=== PATIENT | male | born 1970 | race Caucasian/White ===

== ENCOUNTER 2020-10-17 01:48 | Day surgery (SDC) | payer BC, SELFPAY ==
[2020-10-01 13:32] VITALS: BMI 30.2
[2020-10-17 07:38] VITALS: BP 140/94; PULSE 67; RESP 16; TEMP 35.9; O2SAT 98
[2020-10-17] MEDS: LACTATED RINGERS 1,000 ML 150 ML IV CONT (07:47)
--- NOTE | 2020-10-17 08:07 | P.PNAN_ITS ---
Anes - Initial Pre Proc Eval Procedure: Operation Date: 10/17/20 08:30 Proposed Procedures p Screening Colonoscopy - John Farrar MD Date/Time: 10/17/20 08:07 Surgeon: John Farrar MD Pre Op Diagnosis: neoplasm screening Patient Data Age: 50 Gender: M Height: 1.75 m Weight: 94.9 kg Last Vital Signs Temp 96.7 F L 10/17/20 07:38 Pulse 67 10/17/20 07:38 Resp 16 10/17/20 07:38 BP 140/94 H 10/17/20 07:38 Pulse Ox 98 10/17/20 07:38 Allergies Allergy/AdvReac Type Severity Reaction Status Date / Time No Known Allergies Allergy Verified 10/17/20 07:37 Home Medications Medication Instructions Recorded Confirmed Type No Home Medications 06/23/20 10/17/20 History Patient hx anesthesia problems: none Family hx anesthesia problems: none PMFSH Past Medical History Medical History (Updated 10/17/20 @ 08:03 by Stalin Moe MD) Dyslipidemia Family History Family History Grandparent Family history of cardiovascular disease Acute myocardial infarction, Onset Age: 55 Malignant neoplasm of prostate Father Malignant neoplasm of prostate Social History Social History (Updated 06/23/20 @ 15:34 by Priscilla Culp CMA) Smoking status: Never smoker Alcohol intake: current Drinks per week: 6 Alcohol use details: BEER OR RUM Living arrangements: with family Gender identity (if verbalized by the patient): Male Spiritual care concerns: No Anes - Eval Final PreProcedure Day of Procedure 10/17/20 08:07 Patient weight: obese Heart: regular rate and rhythm Lungs: clear to auscultation Airway: Mallampati scale class II Neurological: alert and oriented Last oral intake: >/= 8 hours ASA classification: II Emergent: no Anesthetic plan: proceed Anesthesia type and monitoring: general GIVS and standard monitoring Informed Consent: The patient's anesthetic plan and its attendant risks and benefits were discussed with the patient/family/POA. Questions were solicited and answers provided to the satisfaction of the patient/family/POA.
--- NOTE | 2020-10-17 08:18 | PM.HPGS ---
History of Present Illness History of Present Illness Consent: Risks, benefits, and alternatives have been discussed and questions answered. Patient agrees to proceed with procedure. Chief complaint: neoplasm screening Narrative: Mendez Andrews is a 50 year old male Referred for colon cancer screening. This is his 1st colonoscopy Review of Systems Review of Systems: All systems reviewed & are unremarkable except as noted in HPI and below PMFSH Past Medical History Medical History Dyslipidemia Family History Family History Grandparent Family history of cardiovascular disease Acute myocardial infarction, Onset Age: 55 Malignant neoplasm of prostate Father Malignant neoplasm of prostate Social History Social History Smoking status: Never smoker Alcohol intake: current Drinks per week: 6 Alcohol use details: BEER OR RUM Living arrangements: with family Gender identity (if verbalized by the patient): Male Spiritual care concerns: No Meds Home Medications and Allergies Home Medications Medication Instructions Recorded Confirmed Type No Home Medications 06/23/20 10/17/20 History Allergies Allergy/AdvReac Type Severity Reaction Status Date / Time No Known Allergies Allergy Verified 10/17/20 07:37 Vital Signs Vital Signs - 24 hr 10/17/20 07:38 Temperature 35.9 C L Pulse Rate 67 Respiratory Rate 16 Blood Pressure 140/94 H Pulse Oximetry 98 Exam Resp: Auscultation: clear to auscultation bilaterally Cardio: Rate: regular rate Rhythm: regular rhythm GI: GI Palp: Yes Soft to palpation and No Tenderness to palpation present (GI) Assessment and Plan Assessment and plan (1) Colon cancer screening: Code(s): Z12.11 - Encounter for screening for malignant neoplasm of colon Status: Acute Assessment and Plan: Colonoscopy with possible biopsy or polypectomy or cautery or injection of substances.
[2020-10-17 08:56] VITALS: BP 125/84; PULSE 70; RESP 24; O2SAT 97
[2020-10-17 09:06] VITALS: BP 125/85; PULSE 66; RESP 18; O2SAT 97
[2020-10-17 09:16] VITALS: BP 128/86; PULSE 70; RESP 18; O2SAT 100
== END 2020-10-17 09:26 | disposition home or self-care (01) ==
PROVIDERS: PCP Family Medicine; Visit Provider Internal Medicine Gastroenterology
PROC: 0DJD8ZZ Inspection of Lower Intestinal Tract, Via Natural or Artificial Opening Endoscopic (ICD-10-PCS; CPT 45378; principal; 2020-10-17 08:30)
DX: Z12.11 Encounter for screening for malignant neoplasm of colon (principal); K57.30 Diverticulosis of large intestine without perforation or abscess without bleeding; E78.5 Hyperlipidemia, unspecified; E66.9 Obesity, unspecified; Z68.30 Body mass index [BMI] 30.0-30.9, adult
CPT/HCPCS: 45378; J2704; J7120

== ENCOUNTER 2022-03-24 14:13 | Outpatient (CLI) | payer BC, SELFPAY ==
[2022-03-24 15:19] LABS: Strep Group A RT-PCR NOT DETECTED (Negative)
== END 2022-03-24 14:14 | disposition home or self-care (01) ==
LOC: ANHLAB 14:14
PROVIDERS: PCP Emergency Medicine; Visit Provider Physician Assistant
DX: J02.9 Acute pharyngitis, unspecified (principal)
CPT/HCPCS: 87651

== ENCOUNTER 2022-03-27 15:54 | Emergency (ER) | payer BC, SELFPAY ==
--- NOTE | 2022-03-27 15:57 | ED.URI ---
HPI - URI/Sore Throat General Chief Complaint: Eye Problems Stated Complaint: SORE THROAT/EYE DRAINAGE Time Seen by Provider: 03/27/22 16:06 Source: patient and RN notes reviewed Mode of arrival: ambulatory Limitations: no limitations History of Present Illness HPI Narrative: 52-year-old male presents with concern for nasal congestion, sinus pain, sore throat for 1 week. Reports he woke up this morning with his left eye with crusty drainage. Reports the eyes watering all day. Reports he takes Sudafed with no relief of his sinus pressure meds and pain. MD elicited complaint: nasal congestion Related Data Allergies Allergy/AdvReac Type Severity Reaction Status Date / Time No Known Allergies Allergy Verified 03/27/22 16:03 Review of Systems Review of Systems: CONSTITUTIONAL: Denies malaise, chills, sweats, or fever. EYES: Denies visual changes. Reports left eye redness, discharge. ENT: Reports rhinorrhea, congestion, sinus pain, otalgia and sore throat. CARDIOVASCULAR: Denies chest pain, palpitations, or edema. RESPIRATORY: Reports cough. Denies dyspnea. GASTROINTESTINAL: Denies abdominal pain, nausea, vomiting, diarrhea SKIN: Denies rash or itching. MUSCULOSKELETAL: Denies myalgia. NEUROLOGIC: Denies headache. All systems reviewed & are unremarkable except as noted in HPI and below PMFSH Past Medical History Medical History Dyslipidemia Family History Family History Grandparent Family history of cardiovascular disease Acute myocardial infarction, Onset Age: 55 Malignant neoplasm of prostate Father Malignant neoplasm of prostate Social History Social History Alcohol intake: current Drinks per week: 6 Alcohol use details: BEER OR RUM Gender identity (if verbalized by the patient): Male Spiritual care concerns: No Comments At time of signature, agree with nursing past medical, surgical, social and family history. There is no relevant family history pertinent to the presenting complaint Exam Narrative: GENERAL: Well-appearing, well-nourished, and in no acute distress. HEAD: Normocephalic EYES: PERRLA, left sclera injected, conjunctivae clear, watery drainage. Right eye unremarkable ENT: Nares clear, turbinates edematous and erythematous, green discharge. Mucous membranes moist. TM pearly romano with dull light reflex bilaterally; no tragal tenderness. Oropharynx erythematous without lesions. Tonsils not enlarged and without exudate, no drooling, no hoarseness, no trismus, uvula midline. NECK: Supple. No lymphadenopathy CHEST: Clear to auscultation, breath sounds equal. No wheezing, rhonchi, rales, or stridor. No respiratory distress, speaks in full sentences. HEART: Regular rate and rhythm. No murmur heard. SKIN: Warm, dry, no rash. NEURO: Alert and oriented x3. PSYCH: Normal mood and affect Course Course Emergency Course: Patient is aware of diagnosis, understands and agrees to treatment plan. Anticipatory guidance given. Patient agrees to follow-up as directed and is aware of reasons to seek care at the emergency department. Portions of this record may have been created with voice recognition software Level of Care: Express Care Visit Vital Signs Vital signs: Vital Signs Temperature 98.1 F 03/27/22 16:03 Pulse Rate 88 03/27/22 16:03 Respiratory Rate 16 03/27/22 16:03 Blood Pressure 153/103 H 03/27/22 16:03 Pulse Oximetry 99 03/27/22 16:03 Temperature 98.1 F 03/27/22 16:06 Pulse Rate 88 03/27/22 16:06 Respiratory Rate 16 03/27/22 16:06 Blood Pressure 153/103 H 03/27/22 16:06 Pulse Oximetry 99 03/27/22 16:06 Reviewed. MDM - URI/Sore Throat MDM Narrative Medical decision making narrative: Differential diagnosis considered: Fernandez virus, strep pharyngitis, allergic rhinitis, upper respirat
[2022-03-27 16:03] VITALS: BP 153/103; PULSE 88; RESP 16; TEMP 36.7; O2SAT 99
[2022-03-27 16:06] VITALS: BP 153/103; PULSE 88; RESP 16; TEMP 36.7; O2SAT 99
== END 2022-03-27 16:15 | disposition home or self-care (01) ==
PROVIDERS: Emergency Provider Nurse Practitioner; PCP Emergency Medicine
DX: J32.9 Chronic sinusitis, unspecified (principal); E78.5 Hyperlipidemia, unspecified
CPT/HCPCS: 99213; G0463